=== PATIENT | male | born 2000 | race African-American/Black ===

== ENCOUNTER 2024-01-26 20:30 | Emergency (ER) | payer SELFPAY ==
[~2024-01-26] VITALS: Ht 188 cm; Wt 104.3 kg
[2024-01-26 21:10] VITALS: BP 138/74; PULSE 68; RESP 16; TEMP 98.1; O2SAT 100
[2024-01-26] MEDS ORDERED: IBUP-2213 PO (21:39)
[2024-01-26 21:54] VITALS: BP 138/74; PULSE 68; RESP 16; TEMP 98.1; O2SAT 100
== END 2024-01-26 21:54 | disposition home or self-care (01) ==
LOC: MED 20:30
DX: M54.50 Low back pain, unspecified (principal); R03.0 Elevated blood-pressure reading, without diagnosis of hypertension
CPT/HCPCS: 99282